=== PATIENT | female | born 1975 | race Caucasian/White ===

== ENCOUNTER 2016-10-16 00:38 | Emergency (ER) | payer MEDICARE ==
[2016-10-16] MEDS ORDERED: Ibuprofen 400 MG TAB ONE (05:12)
== END 2016-10-16 05:44 | disposition home or self-care (01) ==
LOC: ER 00:38
DX: N89.8 Other specified noninflammatory disorders of vagina (principal); B37.3 Candidiasis of vulva and vagina; N83.201 Unspecified ovarian cyst, right side
CPT/HCPCS: 36415; 76830; 80053; 81001; 83690; 85025; 87491; 87591; 87800

== ENCOUNTER 2016-10-23 07:02 | Emergency (ER) | payer MEDICARE ==
[2016-10-23] MEDS ORDERED: SODIUM CHLORIDE 0.9% 1,000 ML ONE (08:22)
[2016-10-23] MEDS ORDERED: ONDANSETRON 4 MG VIAL ONE (11:05)
[2016-10-23] MEDS ORDERED: KETOROLAC 30 MG/ML VIAL ONE (11:05)
== END 2016-10-23 11:48 | disposition home or self-care (01) ==
LOC: ER 07:02
DX: N20.0 Calculus of kidney (principal); B37.3 Candidiasis of vulva and vagina
CPT/HCPCS: 36415; 74176; 80053; 81001; 81025; 85025; 87088; 87491; 87591; 87800; 96361; 96374; 96375; 99284; J1885; J2405